=== PATIENT | female | born 1965 | race Two or more races ===

== ENCOUNTER 2017-03-03 18:07 | Emergency (ER) | payer SELFPAY ==
[2017-03-03] MEDS ORDERED: PREDNISONE 20 MG TABLET ONE (19:15)
== END 2017-03-03 19:45 | disposition home or self-care (01) ==
LOC: ED 18:07
DX: G51.0 Bell's palsy (principal); J45.909 Unspecified asthma, uncomplicated; E11.9 Type 2 diabetes mellitus without complications; Z79.84 Long term (current) use of oral hypoglycemic drugs
CPT/HCPCS: 99283 ×2; J7512